=== PATIENT | male | born 1935 | race Caucasian/White ===

== ENCOUNTER 2022-06-14 09:16 | Emergency (ER) | payer MEDICARE, OTHER ==
[~2022-06-14] VITALS: Ht 180.3 cm; Wt 68.2 kg
[~2022-06-14 09:16] MED LIST: APIX2.5T PO; ASPI-778 PO; CHOL10008 PO; FLUT1DIS IH; HYDR-3972 PO; MULT-1141 PO; OMEP20TA43 PO; RAMI10CA69 PO
--- NOTE | 2022-06-14 09:18 | NUR ---
MEAGAN NEWTON ([facility]) [phone]
[2022-06-14] MEDS ORDERED: ipratropium/albuterol 3ml nebule NEB ONE (09:25)
[2022-06-14] MEDS ORDERED: albuterol 2.5 MG/3 ML nebule NEB ONE (09:25)
[2022-06-14 09:52] LABS: ALANINE AMINOTRANSFERASE 11 U/L (12-78); ALBUMIN 3.3 G/DL (3.4-5.0); ALBUMIN/GLOBULIN RATIO 1.1 (1.1-1.5); ALKALINE PHOSPHATASE 85 IU/L (46-116); ANION GAP 5 (8-16); ASPARTATE AMINO TRANSFERASE 19 U/L (10-37); BILIRUBIN,TOTAL 0.7 MG/DL (0.1-1.0); BLOOD UREA NITROGEN 21 MG/DL (7-18); BUN/CREATININE RATIO 17.5 (5.4-32.0); CALCIUM 9.1 MG/DL (8.5-10.1); CHLORIDE 109 MMOL/L (99-107); GLUCOSE 85 MG/DL (70-104); SODIUM 146 MMOL/L (135-145); TOTAL CARBON DIOXIDE 32.1 MMOL/L (24-32); TOTAL PROTEIN 6.3 G/DL (6.4-8.2); eGFR 57 ML/MIN
[2022-06-14 09:57] LABS: EOSINOPHILS # (AUTO) 0.1 X10'3 (0-0.9); EOSINOPHILS % (AUTO) 1.1 % (0-6); MEAN PLATELET VOLUME 9.2 FL (7.4-10.4); MONOCYTES # (AUTO) 0.5 X10'3 (0-0.9); MONOCYTES % (AUTO) 5.5 % (2-12)
[2022-06-14 09:59] LABS: BASOPHILS % (AUTO) 0.5 % (0-1); HEMATOCRIT 44.1 % (42.0-52.0); HEMOGLOBIN 14.9 g/dl (14.0-17.9); LYMPHOCYTES # (AUTO) 3.5 X10'3 (1.1-4.8); LYMPHOCYTES % (AUTO) 35.7 % (21-51); MEAN CORPUSCULAR HEMOGLOBIN 31.1 PG (27.0-31.0); MEAN CORPUSCULAR HGB CONC 33.9 g/dL (33.0-36.5); MEAN CORPUSCULAR VOLUME 91.6 FL (78-98); NEUTROPHILS # (AUTO) 5.6 X10'3 (1.8-7.7); NEUTROPHILS % (AUTO) 57.2 % (42-75); PLATELET COUNT 169 X10'3 (140-440); RED BLOOD COUNT 4.81 X10'6 (4.70-6.10); RED CELL DISTRIBUTION WIDTH 14.3 % (11.5-14.5); WHITE BLOOD COUNT 9.9 X10'3 (4.5-11.0)
[2022-06-14] MEDS ORDERED: normal saline 1000ML IV soln IVB ONE (10:15)
[2022-06-14 10:20] LABS: TOTAL CELLS COUNTED 100
[2022-06-14 10:21] LABS: PLATELET ESTIMATE NORMAL; STOMATOCYTES FEW
--- NOTE | 2022-06-14 10:47 | NUR ---
spoke with Lesly, will call Queenie to have her pick pt up.
[2022-06-14] MEDS ORDERED: BUDE10.27 INH (11:02)
[2022-06-14] MEDS ORDERED: CIPR-202 PO (11:02)
[2022-06-14] MEDS ORDERED: ALBU18HF2 INH (11:02)
[2022-06-14] MEDS ORDERED: PRED20TA PO (11:02)
[2022-06-14 11:13] VITALS: BP 140/60
[2022-06-14] MEDS ORDERED: methylPREDNISolone sod succ 125mg/2ml vial IV ONE (11:15)
[2022-06-14] MEDS ORDERED: ciprofloxacin 250mg tablet PO ONE (11:15)
--- NOTE | 2022-06-14 11:28 | NUR ---
Pt refused po medication of antibiotics, "I just want to get out of here."
--- NOTE | 2022-06-14 11:48 | NUR ---
Pt given and understands d/c instructions. IV d/c'd, catheter was intact. Ambulatory to the lobby.
== END 2022-06-14 11:53 | disposition home or self-care (01) ==
LOC: ER 09:17
DX: J44.1 Chronic obstructive pulmonary disease with (acute) exacerbation (principal); I10 Essential (primary) hypertension; J44.9 Chronic obstructive pulmonary disease, unspecified; F17.200 Nicotine dependence, unspecified, uncomplicated; Z88.0 Allergy status to penicillin
CPT/HCPCS: 36415; 71045; 80053; 83880; 84484; 85007; 85025; 93005; 94640; 96374; 99285; J2930; J7030; 94760